=== PATIENT | male | born 1975 | race Caucasian/White ===

== ENCOUNTER 2018-04-19 03:46 | Inpatient (IN) | payer BC ==
[~2018-04-19] VITALS: Ht 182.9 cm; Wt 93.4 kg
--- NOTE | 2018-04-19 04:01 | NUR ---
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 UPON ARRIVAL, PT STATES CP 12/04 NON RADIATING. -N/V. SKIN WNL. VSS. NO S/S OF ACUTE DISTRESS NOTED. RESP EVEN AND UNLABORED. PT PLACED ON NETWORK OPERATIONS PROJECT MANAGER AND POX. PT SAFETY AND COMFORT MEASURES IN PLACE. PT'S BEDSIDE. AWAITING MD FOR EVAL.
[2018-04-19] MEDS ORDERED: IV NS 0.9% 1,000 ML BAG IV ONE (04:30)
[2018-04-19 04:31] LABS: BASOPHILS % (AUTO) 0.5 % (0.0-2.0); EOSINOPHILS % (AUTO) 1.3 % (0.0-6.0); HEMATOCRIT 41 % (39-51); HEMOGLOBIN 13.9 g/dL (13.5-17.5); LYMPHOCYTES # (AUTO) 2.6 /CMM (0.8-4.8); LYMPHOCYTES % (AUTO) 38.8 % (20.0-44.0); MEAN CORPUSCULAR HGB CONC 34 g/dl (31.0-36.0); MEAN CORPUSCULAR VOLUME 85 fL (80-96); MONOCYTES # (AUTO) 0.5 /CMM (0.1-1.30); MONOCYTES % (AUTO) 6.9 % (2.0-12.0); NEUTROPHILS # (AUTO) 3.5 /CMM (1.8-8.9); NEUTROPHILS % (AUTO) 52.5 % (43.0-81.0); PLATELET COUNT (AUTO) 285 /CMM (150-450); RDW COEFFICIENT OF VARIATION 13.6 (11.5-15.0); RED BLOOD CELL COUNT(AUTO) 4.77 MIL/uL (4.5-6.0); WHITE BLOOD COUNT (AUTO) 6.7 K/uL (4.3-11.0)
[2018-04-19 04:43] LABS: CALCIUM, SERUM 8.8 mg/dL (8.5-10.1); CARBON DIOXIDE 25 mmol/L (21-32); CHLORIDE 105 mmol/L (98-107); CREATININE 0.9 mg/dL (0.6-1.3); GLUCOSE 93 mg/dL (74-106); POTASSIUM 3.9 mmol/L (3.5-5.1); SODIUM SERUM 139 mmol/L (136-145); UREA NITROGEN, BLOOD 16 mg/dL (7-18)
[2018-04-19 04:45] LABS: D-DIMER 0.19 mg/L(FEU (0.17-0.50); INR 0.91 (0.87-1.13)
[2018-04-19 04:50] LABS: TROPONIN I < 0.017 ng/mL (0.00-0.056)
[2018-04-19] MEDS ORDERED: ASPIRIN 325 MG TABLET ONE (04:58)
[2018-04-19] MEDS ORDERED: ASPIRIN 325 MG TABLET PO ONE (05:00)
--- NOTE | 2018-04-19 05:33 | NUR ---
REPORT GIVEN TO GASOLINE CATALYST OPERATORGLORIA SIMON FOR NASIM
--- NOTE | 2018-04-19 05:55 | NUR ---
RECEIVED PATIENT FROM DAY SHIFT, PATIENT IS ALERT AND ORIENTEDX4, DENIES RESPIRATORY DISTRESS OR CHEST PAIN AT THIS TIME. IV ON LEFT AC IS PATENT AND INTACT. TELE MONITOR SB 52. NO EDEMA, NO SKIN BREAKDOWN PRESENT. SRX2, BED IN LOW POSITION, CALL LIGHT WITHIN REACH, WILL CONTINUE TO MONITOR PATIENT.
[2018-04-19 06:00] VITALS: BP 116/75
[2018-04-19 06:30] VITALS: BP 116/75
--- NOTE | 2018-04-19 06:35 | NUR ---
PAGED PRICILLA FOR ADMISSION ORDER.
--- NOTE | 2018-04-19 06:38 | NUR ---
NO ACUTE DISTRESS NOTED SINCE ADMISSION. WILL ENDORSE TO DAY SHIFT NURSE FOR NASIM.
[2018-04-19] MEDS ORDERED: NITROGLYCERIN 0.4 MG/TAB BOTTLE SL PRN (07:30)
[2018-04-19] MEDS ORDERED: MAG HYDROX/AL HYDROX/SIMETH 30 ML UDC PO PRN (07:30)
[2018-04-19] MEDS ORDERED: ONDANSETRON HCL/PF 4 MG/2 ML VIAL IVP PRN (07:30)
[2018-04-19] MEDS ORDERED: HYDROCODONE/APAP 5/325MG 1 EACH TABLET PO PRN (07:30)
[2018-04-19] MEDS ORDERED: Z GUARD REMEDY 2 OZ OINT TP PRN (07:30)
[2018-04-19] MEDS ORDERED: ACETAMINOPHEN 325 MG TABLET PO PRN (07:30)
[2018-04-19] MEDS ORDERED: MAGNESIUM HYDROXIDE 30 ML UDC PO PRN (07:30)
[2018-04-19] MEDS ORDERED: LISD20CA PO (07:36)
[2018-04-19] MEDS ORDERED: ENOXAPARIN SODIUM 40 MG/0.4 ML DISP.SYRIN SQ SCH (07:53)
[2018-04-19 08:00] VITALS: BP 108/71
--- NOTE | 2018-04-19 08:00 | NUR ---
dr. del toro in to see pt. awaiting nursing faculty dr. fletcher to come in.labwork done,echo done.
[2018-04-19] MEDS ORDERED: ASPIRIN 325 MG TABLET PO SCH (09:00)
--- NOTE | 2018-04-19 09:00 | NUR ---
troponin negative this am.
[2018-04-19 09:13] LABS: CHOLESTEROL 164 mg/dL (<200); HDL CHOLESTEROL 80 mg/dL (40-60); LDL 90 mg/dL (0-99); TRIGLYCERIDES 60 mg/dL (30-150)
[2018-04-19 09:50] LABS: TROPONIN I < 0.017 ng/mL (0.00-0.056)
[2018-04-19 16:00] VITALS: BP 114/77
--- NOTE | 2018-04-19 16:00 | NUR ---
dr. fletcher in and dc order given-hep lock outtele dc'd.all papers signed.belonging sheet signed.
--- NOTE | 2018-04-19 16:35 | NUR ---
taken to lobby by roll mechanic and accompanied by as well. aware to follow up with private md and dr. del toro.
== END 2018-04-19 16:40 | disposition home or self-care (01) | DRG 206 ==
LOC: ER 03:48 → TELE 05:20 → MED 10:28
PROVIDERS: ADMIT Internal Medicine; ATTEND Internal Medicine
DX: M94.0 Chondrocostal junction syndrome [Tietze] (principal); F90.9 Attention-deficit hyperactivity disorder, unspecified type; Z82.49 Family history of ischemic heart disease and other diseases of the circulatory system
CPT/HCPCS: 36415; 71045-TC; 80048-TC; 80061-TC; 80305; 84484-TC; 85025-TC; 85378-TC; 85730-TC; 87081-TC; 93307-TC; A4606; G0480; J7030; Z7610